=== PATIENT | male | born 1985 | race Caucasian/White ===

== ENCOUNTER 2017-02-18 09:33 | Emergency (ER) | payer OTHER | END 2017-02-18 10:18 | disposition home or self-care (01) | LOC: ER 09:33 | DX: S05.01XA Injury of conjunctiva and corneal abrasion without foreign body, right eye, initial encounter (principal); W22.8XXA Striking against or struck by other objects, initial encounter | CPT/HCPCS: 99282 ==

== ENCOUNTER 2017-04-28 11:10 | Emergency (ER) | payer OTHER | END 2017-04-28 13:08 | disposition home or self-care (01) | LOC: ER 11:10 | DX: M54.5 Low back pain (principal); G89.29 Other chronic pain | CPT/HCPCS: 96372; 99282-25 ==